=== PATIENT | male | born 1955 | race Caucasian/White ===

== ENCOUNTER 2019-10-27 13:45 | Outpatient (REF) | payer BC, SELFPAY ==
[2019-10-27 19:41] LABS: HCT 46.3 % (40.0-50.0); HGB 15.9 g/dL (13.5-17.5); Mean Corp. HGB Concentration 34.3 g/dL (32.0-36.0); Mean Corpuscular Hemoglobin 29.9 pg (27.0-33.0); Mean Corpuscular Volume 87.2 fL (80-95); Mean Platelet Volume 10.4 fL (8.0-11.0); Platelet Count 259 x1000/uL (130-400); RBC 5.31 m/cumm (4.50-6.00); RBC Distribution Width 13.8 % (11.8-14.1); White Blood Cell Count 5.95 k/cumm (4.4-10.8)
[2019-10-27 19:49] LABS: ALT 54 U/L (16-63); AST 33 U/L (15-37); Albumin 4.3 g/dL (3.4-5.0); Alkaline Phosphatase 73 U/L (46-116); Anion Gap 9.9 mmol/L (3-11); BUN 20 mg/dL (7-18); Bilirubin, Total 1.1 mg/dL (0.2-1.0); CO2 27.1 mmol/L (21.0-32.0); Calcium 9.4 mg/dL (8.5-10.1); Calculated LDL 116 mg/dL (<100); Chloride 105 mmol/L (98-107); Cholesterol 181 mg/dL (<200); Glucose 94 mg/dL (74-106); HDL Cholesterol 47 mg/dL (40-60); Potassium 4.2 mmol/L (3.5-5.1); Sodium 142 mmol/L (136-145); Total Protein 7.5 g/dL (6.4-8.2); Triglyceride 92 mg/dL (<150)
== END 2019-10-27 14:05 ==
LOC: NCHCN 13:45
PROVIDERS: PCP Internal Medicine; Visit Provider Nurse Practitioner Family
DX: Z00.00 Encounter for general adult medical examination without abnormal findings (principal); K59.09 Other constipation; Z71.89 Other specified counseling
CPT/HCPCS: 80053; 80061; 85027

== ENCOUNTER 2021-10-15 18:46 | Outpatient (REF) | payer MEDICARE, SELFPAY ==
[2021-10-15 19:43] LABS: C-Reactive Protein 0.24 mg/dL (0.0-0.3)
[2021-10-16 16:58] LABS: Uric Acid 6.2 mg/dL (3.5-7.2)
== END 2021-10-15 18:47 | disposition home or self-care (01) ==
LOC: NCHCN 18:46
PROVIDERS: Visit Provider Family Medicine
DX: M46.92 Unspecified inflammatory spondylopathy, cervical region (principal); M25.50 Pain in unspecified joint; Z12.5 Encounter for screening for malignant neoplasm of prostate
CPT/HCPCS: 84153; 84550; 86140

== ENCOUNTER 2021-11-21 23:07 | Observation (INO) | payer MEDICARE, SELFPAY ==
[2021-11-21 23:13] VITALS: BP 138/85; PULSE 77; RESP 22; TEMP 36.4; O2SAT 99
[2021-11-21] MEDS: Normal Saline 1,000 ML 1000 ML IV (23:15)
--- NOTE | 2021-11-21 23:15 | DI.CT_ITS ---
Exam(s) CT ABDOMEN PELVIS WO EXAM: CT ABDOMEN PELVIS WO CLINICAL HISTORY: n/v abdominal pain. TECHNIQUE: Imaging Protocol: Axial computed tomography images with coronal and sagittal reformatted images were created and reviewed. Oral: no COMPARISON: No exams were available for comparison FINDINGS: ABDOMEN: Lung Bases: Normal where visualized. Liver: Normal density. No measurable mass. Gallbladder and biliary tract: No radiodense calculus or dilation. Pancreas: Normal density, no abnormal calcifications or inflammatory process. Spleen: Normal. Kidneys: Normal size, contour and axis. No radiodense stones or obstructive uropathy. No masses seen. Adrenal glands: No masses seen. Lymph nodes: Within normal limits. Abdominal Aorta: Abdominal portion non-dilated. PELVIS: Bladder: Symmetric distention, no gross wall thickening. Bowel: Dilatation of small bowel with transition point in right lower quadrant consistent with obstru ction. Fecalization of distal small bowel. Moderate quantity of stool in the colon. No colonic inf lammation. Peritoneal cavity: No ascites, collection or mesenteric inflammatory response. Soft tissues: Small b ilateral fatty containing inguinal hernias. Small amount of fluid on the right. Reproductive organs: Within normal limits. Bones: Degenerative disc changes in the lumbar spine. IMPRESSION: Findings consistent with small-bowel obstruction with transition point in the right lower quadrant. RADIATION DOSE DELIVERED: 881.19mGy.cm Total DLP DATA REPOSITORY: All CT scans at this facility are submitted to the National Radiology Data Registry (NRDR) Dose Index Registry (DIR) with the [employer] ([employer]). RADIATION OPTIMIZATION: All CT scans at this facility use at least one of these dose optimization te chniques: automated exposure control; mA and/or kV adjustment per patient size (includes targeted exa ms where dose is matched to clinical indication); or iterative reconstruction.
[2021-11-21] MEDS: Ondansetron 4 MG/2 ML VIAL (23:22)
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
[2021-11-21 23:28] LABS: Abs Immature Grans 0.03 10^3/uL (0.0-0.06); Absolute Basophil Count 0.05 10^3/uL (0.0-0.2); Absolute Eosinophil Count 0.31 10^3/uL (0.0-0.7); Absolute Lymphocyte Count 1.98 10^3/uL (1.2-3.4); Absolute Monocyte Count 0.78 10^3/uL (0.1-0.8); Absolute Neutrophil Count 6.04 10^3/uL (1.2-6.7); Basophils % 0.5; Eosinophils % 3.4; HCT 46.5 % (40.0-50.0); HGB 15.6 g/dL (13.5-17.5); Immature Grans % 0.3; Lymphocytes % 21.5; MCH 29.3 pg (27.0-33.0); MCHC 33.5 % (32.0-36.0); MCV 87 fL (80-95); MPV 9.4 fL (8.0-11.0); Monocytes % 8.5; Neutrophils % 65.8; Platelet Count 235 10^3/uL (130-400); RBC 5.33 10^6/uL (4.36-5.78); RDW 13.2 % (11.8-14.1); WBC 9.19 10^3/uL (4.4-10.8)
[2021-11-21] MEDS: LORazepam 2 MG/ML VIAL 1 MG IVP (23:35)
[2021-11-21 23:42] LABS: ALT 37 U/L (16-63); AST 23 U/L (15-37); Albumin 3.9 g/dL (3.4-5.0); Alkaline Phosphatase 98 U/L (46-116); BUN 21 mg/dL (7-18); Bilirubin, Direct 0.2 mg/dL (0.0-0.2); Bilirubin, Total 1.1 mg/dL (0.2-1.0); CREATININE 1.1 mg/dL (0.70-1.30); Calcium 9.5 mg/dL (8.5-10.1); Chloride 101 mmol/L (98-107); Glucose 164 mg/dL (74-106); Lipase 99 U/L (73-393); Magnesium 1.9 mg/dL (1.8-2.4); Potassium 4.2 mmol/L (3.5-5.1); Sodium 141 mmol/L (136-145); Total Protein 7.5 g/dL (6.4-8.2)
[2021-11-21 23:43] LABS: ETHANOL BLOOD < 3.0 mg/dL (<10)
[2021-11-22] MEDS: diphenhydrAMINE 50 MG/ML VIAL 25 MG IVP (00:21)
[2021-11-22] MEDS: Ketorolac 15 MG/ML VIAL IVP (00:22)
[2021-11-22] MEDS: LORazepam 2 MG/ML VIAL 1 MG IVP (00:22)
[2021-11-22] MEDS: Ondansetron 4 MG/2 ML VIAL IVP (00:23)
--- NOTE | 2021-11-22 01:07 | DI.VRAD_ITS ---
PROCEDURE INFORMATION: Exam: CT Abdomen And Pelvis Without Contrast Exam date and time: 11/21/2021 11:49 PM Age: 65 years old Clinical indication: Nausea and vomiting; Abdominal pain; Generalized; Additional info: N/v acute abd pain TECHNIQUE: Imaging protocol: Computed tomography of the abdomen and pelvis without contrast. Radiation optimization: All CT scans at this facility use at least one of these dose optimization techniques: automated exposure control; mA and/or kV adjustment per patient size (includes targeted exams where dose is matched to clinical indication); or iterative reconstruction. COMPARISON: No relevant prior studies available. FINDINGS: Lungs: The visualized portions of the lung bases are normal. Liver: Normal. No mass. Gallbladder and bile ducts: Normal. No calcified stones. No ductal dilation. Pancreas: Normal. No ductal dilation. Spleen: Normal. No splenomegaly. Adrenal glands: Normal. No mass. Kidneys and ureters: Normal. No hydronephrosis. Stomach and bowel: Multiple borderline to mildly dilated fluid-filled loops of small bowel within the right upper and mid abdomen measuring up to 3.2 cm in diameter, suspicious for early mechanical obstruction. A transition point is suspected within the right lower quadrant, where there is fecalization within a loop of small bowel (series 2, image 62 and series 3, image 24). Appendix: No evidence of appendicitis. Intraperitoneal space: Unremarkable. No free air. No significant fluid collection. Vasculature: Unremarkable. No abdominal aortic aneurysm. Lymph nodes: Unremarkable. No enlarged lymph nodes. Urinary bladder: Unremarkable as visualized. Reproductive: Unremarkable as visualized. Bones/joints: Unremarkable. No acute fracture. Soft tissues: Bilateral small inguinal hernias, right greater than left, containing fat and a small amount of fluid on the right. IMPRESSION: 1. Multiple borderline to mildly dilated fluid-filled loops of small bowel within the right upper and mid abdomen measuring up to 3.2 cm in diameter, suspicious for early mechanical obstruction. A transition point is suspected within the right lower quadrant, where there is fecalization within a loop of small bowel (series 2, image 62 and series 3, image 24). 2. Bilateral small inguinal hernias, right greater than left, containing fat and a small amount of fluid on the right. Dictated and Authenticated by: Jhonatan Melgoza MD. Ordering:AAMIR Blunt MD
[2021-11-22 01:35] LABS: Source Nasal/Nares
[2021-11-22 02:20] VITALS: BP 136/70; PULSE 77; RESP 17; TEMP 36.4; O2SAT 97
[2021-11-22 02:24] LABS: COVID-19 PCR Negative (Negative)
[2021-11-22] MEDS: Normal Saline Flush 10 ML SYR IVP (02:34)
[2021-11-22] MEDS: Normal Saline 1,000 ML 150 ML IV ×2 (02:34→09:23)
[2021-11-22 08:28] VITALS: BP 122/76; PULSE 59; RESP 18; TEMP 36.3; O2SAT 97
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
[2021-11-22 11:34] VITALS: BP 128/74; PULSE 58; RESP 17; TEMP 36.6; O2SAT 98
== END 2021-11-22 12:11 | disposition home or self-care (01) ==
LOC: ER 11-22 01:32 → MS 11-22 05:01
PROVIDERS: Admitting Provider Surgery; Emergency Provider Emergency Medicine; Visit Provider Surgery
DX: K56.600 Partial intestinal obstruction, unspecified as to cause (principal); R11.2 Nausea with vomiting, unspecified; Z87.820 Personal history of traumatic brain injury; R41.89 Other symptoms and signs involving cognitive functions and awareness; R41.9 Unspecified symptoms and signs involving cognitive functions and awareness; F41.9 Anxiety disorder, unspecified; Z20.822 Contact with and (suspected) exposure to COVID-19; K42.9 Umbilical hernia without obstruction or gangrene; K40.90 Unilateral inguinal hernia, without obstruction or gangrene, not specified as recurrent
CPT/HCPCS: 36415; 80053; 83690; 87635; 96360; 96361; 96374; 96375; 96376; 99235; 99285; 74176; 80320; 81003; 82248; 83735; 85025; G0378; J1200; J1885; J2060; J2405; J3490

== ENCOUNTER 2022-06-02 13:35 | Outpatient (REF) | payer MEDICARE, SELFPAY ==
[2022-06-02 17:58] LABS: Abs Immature Grans 0.03 10^3/uL (0.0-0.06); Absolute Basophil Count 0.06 10^3/uL (0.0-0.2); Absolute Eosinophil Count 0.19 10^3/uL (0.0-0.7); Absolute Lymphocyte Count 2.07 10^3/uL (1.2-3.4); Absolute Monocyte Count 0.48 10^3/uL (0.1-0.8); Basophils % 0.8; Eosinophils % 2.6; HCT 46.2 % (40.0-50.0); Immature Grans % 0.4; Lymphocytes % 28.2; MCH 29.7 pg (27.0-33.0); MCHC 34.6 % (32.0-36.0); MCV 86 fL (80-95); MPV 10.4 fL (8.0-11.0); Monocytes % 6.5; Neutrophils % 61.5; Platelet Count 249 10^3/uL (130-400); RBC 5.39 10^6/uL (4.36-5.78); RDW 13.1 % (11.8-14.1); RDW-SD 40.6 fL; WBC 7.33 10^3/uL (4.4-10.8)
[2022-06-02 19:01] LABS: ALT 32 U/L (16-63); AST 27 U/L (15-37); Albumin 4.3 g/dL (3.4-5.0); Alkaline Phosphatase 75 U/L (46-116); Anion Gap 10.8 mmol/L (3-11); BUN 23 mg/dL (7-18); CO2 24.2 mmol/L (21.0-32.0); CREATININE 0.9 mg/dL (0.70-1.30); Chloride 104 mmol/L (98-107); Estimated GFR 93.61 (mL/min/1.73m2); Glucose 99 mg/dL (74-106); Potassium 4.1 mmol/L (3.5-5.1); Sodium 139 mmol/L (136-145); TSH (W/Ref FT4) 2.79 uIU/mL (0.36-3.74); Total Protein 7.5 g/dL (6.4-8.2); Vitamin B12 665 pg/mL (193-986)
[2022-06-03 19:01] LABS: Estimated Average Glucose 111 mg/dL; Hemoglobin A1C 5.5 % (<5.7)
[2022-06-04 11:18] LABS: Lyme Ab w Rflx to Lyme Confirm Negative (Negative)
== END 2022-06-02 13:36 | disposition home or self-care (01) ==
LOC: LBN 13:35
PROVIDERS: Visit Provider Family Medicine
DX: M25.59 Pain in other specified joint (principal)
CPT/HCPCS: 80053; 82607; 83036; 84443; 85025; 86618

== ENCOUNTER 2023-02-09 13:29 | Outpatient (REF) | payer MEDICARE, SELFPAY ==
[2023-02-09 17:41] LABS: Calculated LDL 109 mg/dL (<100); Cholesterol 180 mg/dL (<200); HDL Cholesterol 57 mg/dL (40-60); Magnesium 1.9 mg/dL (1.8-2.4); TSH (W/Ref FT4) 2.29 uIU/mL (0.36-3.74); Triglyceride 70 mg/dL (<150); Vitamin B12 699 pg/mL (193-986)
== END 2023-02-09 13:30 | disposition home or self-care (01) ==
LOC: NCHCN 13:29
PROVIDERS: PCP Nurse Practitioner Family; Visit Provider Nurse Practitioner Family
DX: G62.9 Polyneuropathy, unspecified (principal); Z00.00 Encounter for general adult medical examination without abnormal findings
CPT/HCPCS: 80061; 82306; 82607; 83735; 84443

== ENCOUNTER 2023-07-24 14:56 | Outpatient (REF) | payer MEDICARE, SELFPAY ==
[2023-07-24 16:00] LABS: ALT 28 U/L (16-63); AST 25 U/L (15-37); Albumin 4.1 g/dL (3.4-5.0); Alkaline Phosphatase 74 U/L (46-116); Anion Gap 9.7 mmol/L (3-11); BUN 14 mg/dL (7-18); Bilirubin, Total 1.4 mg/dL (0.2-1.0); CO2 26.3 mmol/L (21.0-32.0); Calcium 9.5 mg/dL (8.5-10.1); Chloride 105 mmol/L (98-107); Estimated GFR 81.98 (mL/min/1.73m2); Glucose 112 mg/dL (74-106); Potassium 3.8 mmol/L (3.5-5.1); Sodium 141 mmol/L (136-145); Total Protein 7.4 g/dL (6.4-8.2)
== END 2023-07-24 14:57 | disposition home or self-care (01) ==
LOC: NCHCN 14:56
PROVIDERS: PCP Nurse Practitioner Family; Referring Provider Nurse Practitioner Family; Visit Provider Nurse Practitioner Family
DX: K59.09 Other constipation (principal)
CPT/HCPCS: 80053

== ENCOUNTER 2024-01-08 10:23 | Outpatient (REF) | payer MEDICARE, SELFPAY ==
--- OUTSIDE RECORDS SUMMARY | 2024-01-08 10:25 | XMS_ITS | Encounter Summary ---
Author Organization [facility] [place] [address] Care Team Providers Care Antique Collector Name Role Phone FerndanielleAmelia Montes Primary Care Provider [phone] Encounter Details Date Type Department Care Team (Late st Contact Info) Description 10/02/2023 Telephone [place] [address] Joya Ryan MD [facility] [place] [address] Social History Tobacco Use Types Packs/Day Years Used Date Smoking Tobacco: Never Assessed Sex and Gender Information Value Date Recorded Sex Assigned at Not on file Gender Identity Not on file Sexual Orientation Not on file documented as of this encounter Miscellaneous Notes * Telephone Encounter - Maria L Aguilera - 10/16/2023 1:16 PM EDT Please follow scheduling instructions outside of the [facility] Schedule first available appointment with: Dr. Ryan Visit Type: TH FOLLOW UP Appointment Notes: f/up results * Telephone Encounter - Aurelia Ryan RN - 10/06/2023 4:43 PM EDT Unable to connect with patient. Left message to call clinic [phone]. * Telephone Encounter - Aurelia Ryan RN - 10/02/2023 8:21 AM EDT Unable to connect with patient. Left message to call clinic [phone]. ----- Message from Joya Ryan MD sent at 09/27/2023 11:11 PM EDT ----- Hi August - This gentleman has a larger than expected central spinal canal -you ask scheduling to set up can you let him know that this can be a normal variant or can cause symptoms that overlap with neuropathy.We can talk more by TH if he would like - if so, can you ask scheduling to set up a TH visit in an urgent or private slot for me? V documented in this encounter Plan of Treatment Not on file documented as of this encounter Visit Diagnoses Not on filedocumented in this encounter Care Teams Antique Collector Relationship Specialty Start Date End Date Amelia Murray [address] [place] [address] PCP - General Family Medicine 06/17/22 documented as of this encounter
--- OUTSIDE RECORDS SUMMARY | 2024-01-08 10:25 | XMS_ITS | Encounter Summary ---
Author Organization [facility] [place] [address] Care Team Providers Care Cath Lab Technologist Name Role Phone Amelia Murray Primary Care Provider [phone] Encounter Details Date Type Department Care Team (Latest Contact Info) Description 09/04/2023 Travel Social History Tobacco Use Types Packs/Day Years Used Date Smoking Tobacco: Never Assessed Sex and Gender Information Value Date Recorded Sex Assigned at Not on file Gender Identity Not on file Sexual Orientation Not on file documented as of this encounter Plan of Treatment Not on file documented as of this encounter Visit Diagnoses Not on filedocumented in this encounter Care Teams Cath Lab Technologist Relationship Specialty Start Date End Date Amelia Murray [address] [place] [address] PCP - General Family Medicine 06/17/22 documented as of this encounter
--- OUTSIDE RECORDS SUMMARY | 2024-01-08 10:25 | XMS_ITS | Encounter Summary ---
Author Organization [facility] [place] [address] Care Team Providers Care Night Order Selector Name Role Phone Amelia Murray Primary Care Provider [phone] Reason for Visit * Reason Onset Date Comments Appointment 09/09/2023 Encounter Details Date Type Department Care Team (Late st Contact Info) Description 09/09/2023 [place] [address] Joya Ryan MD [facility] [address] [place] [address] Appointment Social History Tobacco Use Types Packs/Day Years Used Date Smoking Tobacco: Never Assessed Sex and Gender Information Value Date Recorded Sex Assigned at Not on file Gender Identity Not on file Sexual Orientation Not on file documented as of this encounter Miscellaneous Notes * Telephone Encounter - Martina Torrez - 09/09/2023 9:19 AM EDT Scheduling Instructions Provider: Dr Ryan Visit Type (paste LUIS Instructions or manually enter): Return for Telehealth, after thoracic MRI If EMG Visit needed list diagnosis for the EMG to be used in [facility]: Appt Note: schedule mri Additional Info Needed: Mri questions need to be asked. documented in this encounter Plan of Treatment Not on file documented as of this encounter Visit Diagnoses Not on filedocumented in this encounter Care Teams Night Order Selector Relationship Specialty Start Date End Date Amelia Murray [address] [place] [address] PCP - General Family Medicine 06/17/22 documented as of this encounter
--- OUTSIDE RECORDS SUMMARY | 2024-01-08 10:25 | XMS_ITS | Clinical Summary ---
[facility] [place] [address] Care Team Providers Care Multimedia Programmer Name Role Phone Amelia Murray Primary Care Provider [phone] Allergies No known active allergies Medications No known medications Social History Tobacco Use Types Packs/Day Years Used Date Smoking Tobacco: Never Assessed Sex and Gender Information Value Date Recorded Sex Assigned at Not on file Gender Identity Not on file Sexual Orientation Not on file Last Filed Vital Signs Vital Sign Reading Time Taken Comments Blood Pressure 147/89 06/29/2023 8:48 AM EST Pulse 101 06/29/2023 8:48 AM EST Temperature - - Respiratory Rate - - Oxygen Saturation - - Inhaled Oxygen Concentration - - Weight 86.6 kg (191 lb) 06/29/2023 8:48 AM EST p t reported Height 177.8 cm (5' 10) 06/29/2023 8:48 AM EST pt reported Body Mass Index 27.41 06/29/2023 8:48 AM EST Plan of Treatment Health Maintenance Due Date Last Done Comments CT Colonography 1954 Colonoscopy 1954 Colorectal Cancer Screening 1954 FIT DNA 1954 FIT 1954 Sigmoidoscopy (10 year) with FIT yearly 1954 Sigmoidoscopy 1954 Hepatitis C Screening 1972 Lipid Screening 1972 Tdap adult 1973 Tetanus vaccine 1973 Diabetes Screening (HgbA1C or Glucose) 1994 Zoster vaccine (1 of 2) 2004 Advance Directive 2009 Pneumoccocal Vaccine: 65+ (1 of 1 - PCV) 12/01/2019 Covid-19 Vaccine ( - 2022-24 season) 2023 Influenza (Flu) vaccine (1 o f 1 - Influenza standard series) 01/17/2024 Care Teams Multimedia Programmer Relationship Specialty Start Date End Date Amelia Murray [address] [place] [address] PCP - General Family Medicine 06/17/22
--- OUTSIDE RECORDS SUMMARY | 2024-01-08 10:25 | XMS_ITS | Encounter Summary ---
Author Organization [facility] [place] [address] Care Team Providers Care Basketball Coach Name Role Phone Amelia Murray Primary Care Provider [phone] Encounter Details Date Type Department Care Team (Late st Contact Info) Description 08/27/2023 External [place] [address] Joya Ryan MD [facility] [place] [address] Social History Tobacco Use Types Packs/Day Years Used Date Smoking Tobacco: Never Assessed Sex and Gender Information Value Date Recorded Sex Assigned at Not on file Gender Identity Not on file Sexual Orientation Not on file documented as of this encounter Plan of Treatment Not on file documented as of this encounter Procedures Procedure Name Priority Date/Time Associated Diagnosis Comments EMG WITH F-WAVE Routine 08/26/2023 11:51 AM EDT documented in this encounter Results * EMG WITH F-WAVE (08/26/2023 11:51 AM EDT) Joya Ryan MD NEUROLOGY ORDERABLE S documented in this encounter Visit Diagnoses Not on filedocumented in this encounter Care Teams Basketball Coach Relationship Specialty Start Date End Date Amelia Murray [address] [place] [id number] PCP - General Family Medicine 06/17/22 documented as of this encounter
--- OUTSIDE RECORDS SUMMARY | 2024-01-08 10:25 | XMS_ITS | Encounter Summary ---
Author Organization [facility] [place] [address] Care Team Providers Care Doll Wigs Hackler Name Role Phone Jose AlfredoAmelia Montes Primary Care Provider [phone] Reason for Referral * Diagnostic Test (Routine) - Closed Specialty Diagnoses / Procedures Referred By Contac t Referred To Contact Radiology Diagnoses Weakness of lower extremity, unspecified laterality Numbness and tingling of both upper extremities Procedures MRI Cervical Spine wo Contrast (Generic) Joya Ryan MD [facility] [place] [address] [place] [address] Referral ID Status Reason Start Date Expiration Date V isits Requested Visits Authorized [id number] Closed Specialty Service Requested 08/26/2023 02/24/2025 1 1 * Diagnostic Test (Routine) - Closed Specialty Diagnoses / Procedures Referred By Contac t Referred To Contact Radiology Diagnoses Weakness of lower extremity, unspecified laterality Procedures MRI Lumbar Spine wo Contrast (Generic) Joya Ryan MD [facility] [place] [address] [place] [address] Referral ID Status Reason Start Date Expiration Date V isits Requested Visits Authorized [id number] Closed Specialty Service Requested 08/26/2023 02/24/2025 1 1 Reason for Visit * Diagnostic Test (Routine) - Closed Specialty Diagnoses / Procedures Referred By Contac t Referred To Contact Radiology Diagnoses Weakness of lower extremity, unspecified laterality Numbness and tingling of both upper extremities Procedures MRI Cervical Spine wo Contrast (Generic) Joya Ryan MD [facility] [place] [place] [address] [facility] [place] [address] Referral ID Status Reason Start Date Expiration Date V isits Requested Visits Authorized [id number] Closed Specialty Service Requested 08/26/2023 02/24/2025 1 1 Encounter Details Date Type Department Care Team (Latest Contact Info) Description 09/04/2023 6:23 PM EDT - 09/04/2023 11:59 PM EDT Hospital [place] [address] Joya Ryan MD [facility] [place] [address] Weakness of lower extremity, unspecified laterality; Numbness and tingling of both upper extremities Discharge Disposition: Home Social History Tobacco Use Types Packs/Day Years Used Date Smoking Tobacco: Never Assessed Sex and Gender Information Value Date Recorded Sex Assigned at Not on file Gender Identity Not on file Sexual Orientation Not on file documented as of this encounter Medications at Time of Discharge Medication Sig Dispensed Refills Start Date End Date meclizine (Antivert) 25 mg tablet Take 25 mg by mouth as needed for Dizziness. 06/25/2023 09/09/2023 documented as of this encounter Progress Notes * Joya Ryan MD - 09/04/2023 11:59 PM EDT Hi August - Can you let Mr. Renteria know that I was looking for evidence of cervical stenosis on MRI - while there is accumulation of degenerative arthritis in the spine - which could be contributing to some of his UE symptoms - , there is not evidence that the spinal cord is in jeopardy. Thanks August! documented in this encounter Plan of Treatment Not on file documented as of this encounter Procedures Procedure Name Priority Date/Time Associated Diagnosis Comments MRI LUMBAR SPINE WITHOUT CONTRAST Routine 09/04/2023 7:37 PM EDT Weakness of lower extremity, unspecified laterality MRI CERVICAL SPINE WO CONTRAST Routine 09/04/2023 7:37 PM EDT Weakness of lower extremity, unspecified laterality Numbness and tingling of both upper extremities documented in this encounter Results * MRI Cervical Spine wo Contrast (Generic) (09/04/2023 7:37 PM EDT) [employer] WORKSTATION ID [id number] [facility] Anatomical Region Laterality Modality C-spine Magnetic Resonan ce Impressions 09/06/2023 5:01 PM EDT 1. ??Mild flattening of the ventral spinal cord at C5-6 and C6-7 without cord compression. Normal spinal cord signal. 2. ??Multifocal foraminal stenosis up to severe on the left at C3-4 and bilaterally at C5-6 and C6-7. 3. ??Additional degenerative changes as discussed. Thank you for letting us participate in the care of this patient. ??If you are a health care provider and have any questions regarding this report, please contact the number below. ??For patients who have questions please contact the health care management specialist that requested your imaging first. ? Narrative 09/06/2023 5:01 PM EDT EXAMINATION: MRI CERVICAL SPINE WO CONTRAST (GENERIC) CLINICAL HISTORY: Myelopathy, chronic, cervical spine; LE weakness + UE dysesthesias cervical myelopathy due to stenosis R29.898, Other symptoms and signs involving the musculoskeletal system - R20.0, Anesthesia of skin - R20.2, Paresthesia of skin TECHNIQUE: MRI of the cervical spine performed without intravenous contrast administration. COMPARISON: None FINDINGS: Severe degenerative disc changes at C5-6 and C6-7 with pronounced loss of disc height and is T2 bright disc signal with prominent reactive edematous endplate changes and anterior osteophyte formation. There is mild loss of height of the C5 and C6 vertebral bodies on a degenerative basis. The remaining cervical vertebrae are maintained in height. The cervical spinal cord is normal in signal. The visualized portions of the brain are within normal limits. C2-3: No significant spinal canal or foraminal stenosis. Fused right facet arthropathy. Moderate left facet arthropathy. C3-4: No significant spinal canal stenosis. Left uncovertebral arthropathy and severe left facet arthropathy with severe left neural foraminal stenosis. No significant right neural foraminal stenosis. C4-5: Disc osteophyte complex that mildly narrows the ventral CSF space without contacting or distorting the spinal cord. Both facet joints appear to be fused. Left uncovertebral arthropathy. Mild bilateral neural foraminal stenosis. C5-6: Disc osteophyte complex that narrows the ventral CSF space and mildly flattens the ventral spinal cord without cord compression. Dorsal ligamentous buckling. Moderate bilateral facet arthropathy. Severe bilateral neural foraminal stenosis. C6-7: Eccentric left disc osteophyte complex that narrows the ventral CSF space and mildly flattens the ventral spinal cord more so on the left. Severe bilateral facet arthropathy and bilateral uncovertebral arthropathy with severe bilateral neural foraminal stenosis. C7-T1: No significant spinal canal or foraminal stenosis. Procedure Note Richi Scherer MD - 09/06/2023 EXAMINATION: MRI CERVICAL SPINE WO CONTRAST (GENERIC) CLINICAL HISTORY: Myelopathy, chronic, cervical spine; LE weakness + UE dysesthesias cervical myelopathy due to stenosis R29.898, Other symptoms and signs involving the musculoskeletal system -R20.0, Anesthesia of skin - R20.2, Paresthesia of skin TECHNIQUE: MRI of the cervical spine performed without intravenous contrastadministration. COMPARISON: None FINDINGS: Severe degenerative disc changes at C5-6 and C6-7 with pronounced loss ofdisc height and is T2 bright disc signal with prominent reactive edematousendplate changes and anterior osteophyte formation. There is mild loss of height ofthe C5 and C6 vertebral bodies on a degenerative basis. The remainingcervical vertebrae are maintained in height. The cervical spinal cord is normalin signal. The visualized portions of the brain are within normal limits. C2-3: No significant spinal canal or foraminal stenosis. Fused rightfacet arthropathy. Moderate left facet arthropathy. C3-4: No significant spinal canal stenosis. Left uncovertebral arthropathyand severe left facet arthropathy with severe left neural foraminal stenosis.No significant right neural foraminal stenosis. C4-5: Disc osteophyte complex that mildly narrows the ventral CSF spacewithout contacting or distorting the spinal cord. Both facet joints appear to befused. Left uncovertebral arthropathy. Mild bilateral neural foraminalstenosis. C5-6: Disc osteophyte complex that narrows the ventral CSF space andmildly flattens the ventral spinal cord without cord compression. Dorsalligamentous buckling. Moderate bilateral facet arthropathy. Severe bilateral neural foraminal stenosis. C6-7: Eccentric left disc osteophyte complex that narrows the ventral CSFspace and mildly flattens the ventral spinal cord more so on the left. Severe bilateral facet arthropathy and bilateral uncovertebral arthropathy withsevere bilateral neural foraminal stenosis. C7-T1: No significant spinal canal or foraminal stenosis. IMPRESSION 1. Mild flattening of the ventral spinal cord at C5-6 and C6-7 withoutcord compression. Normal spinal cord signal. 2. Multifocal foraminal stenosis up to severe on the left at C3-4 and bilaterally at C5-6 and C6-7. 3. Additional degenerative changes as discussed. Thank you for letting us participate in the care of this patient. If youare a health care provider and have any questions regarding this report,please contact the number below. For patients who have questions please contactthe health care management specialist that requested your imaging first. Joya Ryan MD IMG MRI ORDERABLES * MRI Lumbar Spine wo Contrast (Generic) (09/04/2023 7:37 PM EDT) [employer] WORKSTATION ID [id number] RAD Anatomical Region Laterality Modality L-spine Magnetic Resonan ce Impressions 09/06/2023 6:37 PM EDT Extensive degenerative disc disease and facet arthropathy of the lumbar spine as detailed above. Prominent central spinal canal. 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 Dedicated imaging of the thoracic spine may be warranted. Comment: The following findings are so common in people without low back pain that while we report their presence, they must be interpreted with caution and in context of the clinical situation (Reference- Jarvik Et Al, Spine 2001). Findings: (Prevalence in patients without low back pain), disc degeneration (decreased T2 signal, height loss, bulge) (91%), disc T2-signal loss (83%), disc height loss (56%), disc bulge (64%), disc protrusion (32%), annular fissure (38%). Thank you for letting us participate in the care of this patient. ??If you are a health care provider and have any questions regarding this report, please contact the number below. ??For patients who have questions please contact the health care management specialist that requested your imaging first. ? Electronically signed by: Kamlesh Brunson MD, [facility] ([phone]), at 09/06/2023 6:37 PM Narrative 09/06/2023 6:37 PM EDT EXAMINATION: MRI LUMBAR SPINE WO CONTRAST (GENERIC) CLINICAL HISTORY: Low back pain, progressive neurologic deficit; LE weakness R29.898, Other symptoms and signs involving the musculoskeletal system TECHNIQUE: MRI of the lumbar spine performed without intravenous contrast administration. COMPARISON: None FINDINGS: There is mild dextroconvex scoliosis of the lumbar spine. Vertebral heights are normally maintained. There is extensive mixed fatty and edematous discogenic degenerative change in the endplates about the T12-L1, L2-3, L3-4, L4-5 disc spaces. There is loss of disc space height at L2-3, L3-4, and L4-5. The conus medullaris is of normal contour terminating at the level of L1. There appears to be mildly prominent central spinal canal and the most superiorly visualized portions of the lower thoracic spinal cord. At L1-2 there is an asymmetric disc bulge larger on the left. This produces mild left neural foramen narrowing. At L2-3 there is an asymmetric disc bulge larger on the left. This combines with mild bilateral facet arthropathy to produce relative narrowing the spinal canal, moderate narrowing of the left subarticular recess, and mild right and moderate left neural foramen narrowing. At L3-4 there is an asymmetric disc bulge larger on the left. This combines with mild right and moderate left hypertrophic facet arthropathy to produce relative narrowing of the spinal canal with moderate left subarticular recess narrowing and moderate bilateral neural foramen narrowing. At L4-5 there is a large circumferential disc bulge. There is moderate bilateral hypertrophic facet arthropathy. These abnormalities combine to produce mild bilateral subarticular recess narrowing and moderate bilateral neural foramen narrowing. At L5-S1 there is moderate bilateral hypertrophic facet arthropathy producing mild bilateral neural foramen narrowing. Procedure Note Kamlesh Brunson MD - 09/06/2023 EXAMINATION: MRI LUMBAR SPINE WO CONTRAST (GENERIC) CLINICAL HISTORY: Low back pain, progressive neurologic deficit; LEweakness R29.898, Other symptoms and signs involving the musculoskeletal system TECHNIQUE: MRI of the lumbar spine performed without intravenous contrastadministration. COMPARISON: None FINDINGS: There is mild dextroconvex scoliosis of the lumbar spine. Vertebralheights are normally maintained. There is extensive mixed fatty and edematousdiscogenic degenerative change in the endplates about the T12-L1, L2-3, L3-4, L4-5disc spaces. There is loss of disc space height at L2-3, L3-4, and L4-5. Theconus medullaris is of normal contour terminating at the level of L1. Thereappears to be mildly prominent central spinal canal and the most superiorlyvisualized portions of the lower thoracic spinal cord. At L1-2 there is an asymmetric disc bulge larger on the left. Thisproduces mild left neural foramen narrowing. At L2-3 there is an asymmetric disc bulge larger on the left. Thiscombines with mild bilateral facet arthropathy to produce relative narrowing the spinalcanal, moderate narrowing of the left subarticular recess, and mild right andmoderate left neural foramen narrowing. At L3-4 there is an asymmetric disc bulge larger on the left. Thiscombines with mild right and moderate left hypertrophic facet arthropathy to producerelative narrowing of the spinal canal with moderate left subarticular recessnarrowing and moderate bilateral neural foramen narrowing. At L4-5 there is a large circumferential disc bulge. There is moderatebilateral hypertrophic facet arthropathy. These abnormalities combine to producemild bilateral subarticular recess narrowing and moderate bilateral neuralforamen narrowing. At L5-S1 there is moderate bilateral hypertrophic facet arthropathyproducing mild bilateral neural foramen narrowing. IMPRESSION Extensive degenerative disc disease and facet arthropathy of the lumbarspine as detailed above. Prominent central spinal canal. This is partially visualized, and ispossible that it represents a component of a more severe hydrosyringomyelia ofthe thoracic spinal cord. Dedicated imaging of the thoracic spine may bewarranted. Comment: The following findings are so common in people without low backpain that while we report their presence, they must be interpreted with cautionand in context of the clinical situation (Reference- Perlak Et Al, [id number]). Findings: (Prevalence in patients without low back pain), discdegeneration (decreased T2 signal, height loss, bulge) (91%), disc T2-signal loss(83%), disc height loss (56%), disc bulge (64%), disc protrusion (32%), annularfissure (38%). Thank you for letting us participate in the care of this patient. If youare a health care provider and have any questions regarding this report,please contact the number below. For patients who have questions please contactthe health care management specialist that requested your imaging first. Electronically signed by: Kamlesh Brunson MD, [facility]([phone]), at 09/06/2023 6:37 PM Joya Ryan MD IMG MRI ORDERABLES documented in this encounter Visit Diagnoses Diagnosis Weakness of lower extremity, unspecified laterality Numbness and tingling of both upper extremities documented in this encounter Care Teams Doll Wigs Hackler Relationship Specialty Start Date End Date Amelia Murray [address] [place] [address] PCP - General Family Medicine 06/17/22 documented as of this encounter
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
--- OUTSIDE RECORDS SUMMARY | 2024-01-08 10:25 | XMS_ITS | Encounter Summary ---
Author Organization [facility] [place] [address] Care Team Providers Care Concrete Pile Driver Operator Name Role Phone Amelia Murray Primary Care Provider [phone] Reason for Visit * Reason Onset Date Comments Reminder Appointment 09/02/2023 Encounter Details Date Type Department Care Team (Late st Contact Info) Description 09/02/2023 Telephone [place] [phone] Joya Ryan MD [facility] [place] [address] Reminder Appointment Social History Tobacco Use Types Packs/Day Years Used Date Smoking Tobacco: Never Assessed Sex and Gender Information Value Date Recorded Sex Assigned at Not on file Gender Identity Not on file Sexual Orientation Not on file documented as of this encounter Miscellaneous Notes * Telephone Encounter - Sarai Resendiz CMA - 09/02/2023 9:03 AM EDT Spoke with patient and confirmed all medications and allergies including reconciliation of outside medications. documented in this encounter Plan of Treatment Not on file documented as of this encounter Visit Diagnoses Not on filedocumented in this encounter Care Teams Concrete Pile Driver Operator Relationship Specialty Start Date End Date Amelia Murray [address] [place] [id number] PCP - General Family Medicine 06/17/22 documented as of this encounter
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
--- OUTSIDE RECORDS SUMMARY | 2024-01-08 10:25 | XMS_ITS | Continuity of Care Document ---
Author Organization [facility] Address [address] [place] [address] Care Team Providers Care Arborist Name Role Phone ALEXANDRIA FRANCOIS Primary Care Physician Encounter [facility] NBR [id number] Date(s): 07/01/23 - 07/29/23 [facility] [address] [place], [place] [address] Encounter Diagnosis Dizziness and giddiness(Discharge Diagnosis) - 07/01/23 Difficulty in walking, not elsewhere classified(Discharge Diagnosis) - 07/01/23 Other low back pain(Discharge Diagnosis) - 07/01/23 Cervicalgia(Discharge Diagnosis) - 07/01/23 Cervicalgia(Final) - Discharge Disposition: Home Attending Physician: Fede Mcqueen PT, DPT Admitting Physician: TRENTON DENNIS MD Referring Physician: TRENTON DENNIS MD Assessment and Plan Future Appointments Future Scheduled Tests Radiology* CT Abdomen and Pelvis w/ Contrast 07/31/23 Functional Status 06/30/23 Lives In Multilevel home Lives With Spouse Patient's Responsibilities Rehab Caregiv er for pet, Community mobility, Groundskeeper Supervisor, facilities management executive, Health and wellness, Home management, Laundry, Leisure/Play/Hobbies, Manage Medications, Meal preparation, Passenger, Personal ADL, Shopping, Social participation, Volunteer, Yard work Prior ADL Status Independent Prior Mobility Status Independent Prior Instrumental ADL Level Independent Prior Cognitive-Communication Skills Ind ependent Vital Signs Most recent to oldest [Reference Range]: 1 Peripheral Pulse Rate [60-100 bpm] 62 bp m (07/17/23 8:30 AM) Blood Pressure [90-140/60-90 mmHg] 124/7 6mmHg (07/17/23 8:30 AM) Patient Care team information Care Team Personnel Name: ALEXANDRIA FRANCOIS Position: No Access Member Role: Primary Care Physician Address: Address: [address] [address]
--- OUTSIDE RECORDS SUMMARY | 2024-01-08 10:25 | XMS_ITS | Encounter Summary ---
Author Organization [facility] [place] [address] Care Team Providers Care Business Info Consultant Name Role Phone Amelia Murray Primary Care Provider [phone] Encounter Details Date Type Department Care Team (Latest Contact Info) Description 08/26/2023 Travel Social History Tobacco Use Types Packs/Day Years Used Date Smoking Tobacco: Never Assessed Sex and Gender Information Value Date Recorded Sex Assigned at Not on file Gender Identity Not on file Sexual Orientation Not on file documented as of this encounter Plan of Treatment Not on file documented as of this encounter Visit Diagnoses Not on filedocumented in this encounter Care Teams Business Info Consultant Relationship Specialty Start Date End Date Amelia Murray [address] [place] [address] PCP - General Family Medicine 06/17/22 documented as of this encounter
--- OUTSIDE RECORDS SUMMARY | 2024-01-08 10:25 | XMS_ITS | Encounter Summary ---
Author Organization [facility] Address [facility] [place] [address] Care Team Providers Care Nonfarm Animal Caretaker Name Role Phone Amelia Murray Primary Care Provider [phone] Reason for Referral * Diagnostic Test (Routine) - Closed Specialty Diagnoses / Procedures Referred By Contac t Referred To Contact Radiology Diagnoses Numbness and tingling of both upper extremities Procedures MRI Thoracic Spine wwo Contrast Joya Ryan MD [facility] [place] [address] [place] [address] Referral ID Status Reason Start Date Expiration Date V isits Requested Visits Authorized [id number] Closed Specialty Service Requested 09/08/2023 03/09/2025 1 1 Reason for Visit * Diagnostic Test (Routine) - Closed Specialty Diagnoses / Procedures Referred By Contac t Referred To Contact Radiology Diagnoses Numbness and tingling of both upper extremities Procedures MRI Thoracic Spine wwo Contrast Joya Ryan MD [facility] [place] [address] [place] [address] Referral ID Status Reason Start Date Expiration Date V isits Requested Visits Authorized [id number] Closed Specialty Service Requested 09/08/2023 03/09/2025 1 1 Encounter Details Date Type Department Care Team (Latest Contact Info) Description 09/17/2023 9:33 AM EDT - 09/17/2023 11:59 PM EDT [place] [address] Joya Ryan MD [facility] [place] [address] Numbness and tingling of both upper extremities [...] Name Priority Date/Time Associated Diagnosis Comments MRI THORACIC SPINE WITH/WO CONTRAST Routine 09/17/2023 11:01 AM EDT Numbness and tingling of both upper extremities documented in this encounter Results * MRI Thoracic Spine wwo Contrast (09/17/2023 11:01 AM EDT) Ecal WORKSTATION ID [id number] [facility] Anatomical Region Laterality Modality T-spine Magnetic Resonan [...] who have questions please contact the health progressive care nurse that requested your imaging first. ? Electronically signed by: Kamlesh Brunson MD, [facility] ([phone]), at 09/18/2023 9:01 AM Narrative 09/18/2023 9:01 [...] patients who have questions please contactthe health progressive care nurse that requested your imaging first. Electronically signed by: Kamlesh Brunson MD, [facility]([phone]), at 09/18/2023 9:01 AM Joya Ryan MD IMG MRI ORDERABLES documented in this encounter Visit Diagnoses Diagnosis Numbness and tingling of both upper extremities documented in this encounter Administered Medications Inactive Administered Medications - up to 3 most recent administrations Medication Order MAR Action Action Date Dose Rate Site gadoterate meglumine (Dotarem) (0.5 mMol/mL) injection solution 0-100 mL 0-100 mL, Intravenous, ONCE PRN, 1 dose, Starting on Benita 09/17/23 at 0956, Until Benita 09/17/23 at 0956, Per Protocol, Radiology Contrast, Routine Given 09/17/2023 9:56 AM EDT 19 mLs documented in this encounter Care Teams Nonfarm Animal Caretaker Relationship Specialty Start Date End Date Amelia Murray [address] [place] [address] PCP - General Family Medicine 06/17/22 documented as of this encounter
--- OUTSIDE RECORDS SUMMARY | 2024-01-08 10:25 | XMS_ITS | Encounter Summary ---
Author Organization [facility] Address [facility] [place] [address] Care Team Providers Care Irrigation Specialist Name Role Phone JonesvíctordanielleAmelia Montes Primary Care Provider [phone] Encounter Details Date Type Department Care Team (Late st Contact Info) Description 07/01/2023 [place] [id number] Joya Ryan MD [facility] [place] [address] Social History Tobacco Use Types Packs/Day Years Used Date Smoking Tobacco: Never Assessed Sex and Gender Information Value Date Recorded Sex Assigned at Not on file Gender Identity Not on file Sexual Orientation Not on file documented as of this encounter Miscellaneous Notes * Telephone Encounter - Aurelia Ryan RN - 07/09/2023 10:34 AM EST Returned call to Yumiko AVITIA. He stated I saw Ryan for dizziness and neck pain 06/30/23. His symptoms do not appear to be consistent with vertigo and his dizziness was tough to provoke. It was provoked mildly with valsalva maneuver, I wonder if it is a pressure finding. He did mention that he is having bowel bladder changes,constipation when he bears down that is when symptoms occur. Fede wanted Dr. Ryan to be aware of findings and report was faxed last week. Informed Fede that message will be forwarded to Dr. Ryan for review. * Telephone Encounter - Michelle Otero - 07/03/2023 11:31 AM EST Farhana from [facility] calling back wants to let the provider know that Fede is not in the office until Thursday . Fede will be back Thursday morning please call at ext. 1 * Telephone Encounter - Aurelia Ryan RN - 07/03/2023 11:22 AM EST Unable to connect with Fede. Left message to call clinic [phone]. * Telephone Encounter - Urmila Irizarry RN - 07/01/2023 12:01 PM EST Copied from [facility] #[id number]. Topic: Specialty Dept CRMs - Generic Call >> Jul 01, 2023 9:58 AM Charly Swanson wrote: Specialist: Joya Ryan MD Relationship (if other than patient-full name): Fede, PT - Sergei Naranjo Reason for Call: Fede from [place] calling to speak with Dr. Ryan in regards to findings from physical therapy evaluation. This agent paged per process. documented in this encounter Plan of Treatment Not on file documented as of this encounter Visit Diagnoses Not on filedocumented in this encounter Care Teams Irrigation Specialist Relationship Specialty Start Date End Date Amelia Murray [address] [place] [address] PCP - General Family Medicine 06/17/22 documented as of this encounter
--- OUTSIDE RECORDS SUMMARY | 2024-01-08 10:25 | XMS_ITS | Continuity of Care Document ---
Author Organization [facility] Address [address] [place] [address] Care Team Providers Care Manager Program Management Name Role Phone ALEXANDRIA FRANCOIS Primary Care Physician [phone] Encounter [facility] NBR [id number] Date(s): 07/31/23 - 07/31/[address] [address]- [place] Discharge Disposition: Home or Self Care Attending Physician: LORE MCKINLEY Admitting Physician: LORE MCKINLEY Referring Physician: LORE MCKINLEY Results Radiology Reports * Exam Date Time Procedure Performing Provider Status 07/31/23 9:[address] Abdomen and Pelvis w/ Contrast Charmaine Mallory; Mauricio (Verified) Notes: (CT Abdomen and Pelvis w/ Contrast) Reason For Exam: CONSTIPATION CT Abdomen and Pelvis w/ Contrast EXAM DESCRIPTION: CT Abdomen and Pelvis w/ Contrast 07/31/2023 INDICATION: CONSTIPATION TECHNIQUE: All CT scans at this facility use at least one of these dose optimization techniques: Automated exposure control; mA and/or kV adjustment per patient size (includes targeted exams where dose is matched to clinical indication); or iterative reconstruction. Technique: Axial CT images of the abdomen/pelvis with IV contrast administration 100 cc of Isovue-300 contrast was utilized COMPARISON: Outside facility CT abdomen/pelvis without contrast from 11/21/2021 FINDINGS: No focal hepatic lesion. Normal enhancement of the main hepatic veins and main portal vein Normal spleen size without focal mass. No calcified gallstones in the gallbladder. Adrenal glands and pancreas appear within normal limits No focal renal mass, hydronephrosis or perinephric fluid collection on either side. Normal caliber abdominal aorta with atherosclerotic calcifications. No retroperitoneal adenopathy in the abdomen or pelvis. No bowel dilatation to suggest obstruction or ileus. No free intraperitoneal air, ascites or inflammatory changes. Normal appendix. Small fat containing left inguinal hernia. The visualized lung bases are clear. No suspicious regional osseous lesions. Spondylotic changes in the visualized spinal axis IMPRESSION: No acute findings in the abdomen or pelvis Nonobstructive bowel pattern. No free air or inflammatory changes. Normal appendix Additional nonacute findings as detailed above. JOB #: [id number] Final Signed by: Venkat Russell MD Signed (Electronic Signature): 07/31/2023 9:15 am Patient Care team information Care Team Personnel Name: ALEXANDRIA FRANCOIS Position: No Access Member Role: Primary Care Physician Address: Address: [place] [address]- Care Team Related Persons Name: ZURDO GALINDO
--- OUTSIDE RECORDS SUMMARY | 2024-01-08 10:25 | XMS_ITS | Encounter Summary ---
Author Organization [facility] [place] [address] Care Team Providers Care Engagement Quality Consultant Name Role Phone Amelia Murray Primary Care Provider [phone] Encounter Details Date Type Department Care Team (Latest Contact Info) Description 09/17/2023 Travel Social History Tobacco Use Types Packs/Day Years Used Date Smoking Tobacco: Never Assessed Sex and Gender Information Value Date Recorded Sex Assigned at Not on file Gender Identity Not on file Sexual Orientation Not on file documented as of this encounter Plan of Treatment Not on file documented as of this encounter Visit Diagnoses Not on filedocumented in this encounter Care Teams Engagement Quality Consultant Relationship Specialty Start Date End Date Amelia Murray [address] [place] [address] PCP - General Family Medicine 06/17/22 documented as of this encounter
--- OUTSIDE RECORDS SUMMARY | 2024-01-08 10:26 | XMS_ITS | Encounter Summary ---
Author Organization [facility] Address [address] [place] [address] Care Team Providers Care Plater Hot Dip Name Role Phone Unknown, Provider Primary Care Provider [phone] Encounter Details Date Type Department Care Team (Late st Contact Info) Description 04/23/[address] [facility] Services - [facility] ([facility]) [address], [place] [address] Kamlesh Rob, [address] [facility] [address] [place] [address] Social History Tobacco Use Types Packs/Day Years Used Date Smoking Tobacco: Never Assessed Sex and Gender Information Value Date Recorded Sex Assigned at Not on file Gender Identity Not on file Sexual Orientation Not on file documented as of this encounter Plan of Treatment Not on file documented as of this encounter Procedures Procedure Name Priority Date/Time Associated Diagnosis Comments SURGICAL PATHOLOGY Routine 04/23/2012 0:00 EST documented in this encounter Results * SURGICAL PATHOLOGY (04/23/2012 0:00 EST) Pathology Report: SURGICAL PATHOLOGY REPORT Reports generated via electronic interface contain original data; however they are lacking the format of the original report. Caution should be taken when reading/interpreti ng unformatted reports. Name: ? RYAN GALINDO JR ? Accession #: ? [id number] ? : ? 1955 (Age: 56) ??M ? Collect Date: ? 04/23/2012 ? Location: ? [facility] ? Receive Date: ? 04/23/2012 ? Provider: KAMLESH ROB DO Copy to: LENNIE RAMIREZ MD ? Final Pathologic Diagnosis: ? Rectum, biopsy: - Hyperplastic polyp. ??See comment. Comment: ? Deeper sections of this specimen are examined. ??(Dr. Headley)/[facility] Document reviewed and electronically signed by: MARY JO NICHOLS MD Report ??Date: 04/27/2012 15:59 By the signature above, the attending physician certifies that he/she has personally conducted a gross and/or microscopic examination of the described specimens and rendered or confirmed the above diagnosis. Specimen(s) Received: ? Polyp proximal rectum Clinical History: ? Screening for colon cancer Gross Description: ? Received in formalin labelled Dexter George., Ryan A and polyp proximal rectum are two mcguire-pink irregular soft tissue fragments measuring 0.2 x 0.2 x 0.2 cm and 0.2 x 0.1 x 0.1 cm. ??The specimens are entirely submitted in one cassette. ??(Dr. Headley)/[facility] End of Report [facility] 04/23/2012 04/23/2012 16: 15 EST Kamlesh Rob DO PATHOLOGY ORDER GEORGES [facility] [address] [place] [address] documented in this encounter Visit Diagnoses Not on filedocumented in this encounter Care Teams Plater Hot Dip Relationship Specialty Start Date End Date Unknown, Provider, PCP - General 04/23/12 documented as of this encounter
--- OUTSIDE RECORDS SUMMARY | 2024-01-08 10:26 | XMS_ITS | Encounter Summary ---
[place] [address] Care Team Providers Care Mechanical Energy Engineer Name Role Phone AnnAmelia Vegas Primary Care Provider [phone] Reason for Referral * Consultation (Routine) - Closed Specialty Diagnoses / Procedures Referred By Alexa webster Referred To Contact Neurology Diagnoses Other polyneuropathy Akilah Valdez MD [address] [place] [address] [facility] Neurology [address] [place] [address] Referral ID Status Reason Start Date Expiration Date V isits Requested Visits Authorized [id number] Closed Consult, Test & Treat PCP Updated and/or Approved 06/17/2022 06/17/2023 12 12 Encounter Details Date Type Department Care Team (Latest Contact Info) Description 06/17/2022 Transcribe Orders eD Incoming Referrals [phone] Akilah Valdez MD [address] [place] [address] Other polyneuropathy Social History Tobacco Use Types Packs/Day Years Used Date Smoking Tobacco: Never Assessed Sex and Gender Information Value Date Recorded Sex Assigned at Not on file Gender Identity Not on file Sexual Orientation Not on file documented as of this encounter Plan of Treatment Scheduled Referrals Name Type Priority Associated Diagnoses Orde r Schedule Referral to Neurology Outpatient Referral Routine Other Polyneuropathy Ordered: 06/17/2022 documented as of this encounter Visit Diagnoses Diagnosis Other polyneuropathy documented in this encounter Care Teams Mechanical Energy Engineer Relationship Specialty Start Date End Date Amelia Murray [address] [place] [address] PCP - General Family Medicine 06/17/22 documented as of this encounter
--- OUTSIDE RECORDS SUMMARY | 2024-01-08 10:26 | XMS_ITS | Encounter Summary ---
Author Organization [facility] Address [address] [place] [address] Care Team Providers Care Meat Processing Center Manager Name Role Phone Unknown, Provider Primary Care Provider [phone] Encounter Details Date Type Department Care Team (Late st Contact Info) Description 11/26/2019 Lab Requisition [facility] Pathology & Laboratory Medicine - [address] [address] Outr Resulting Lab, Provider Social History Tobacco Use Types Packs/Day Years Used Date Smoking Tobacco: Never Assessed Sex and Gender Information Value Date Recorded Sex Assigned at Not on file Gender Identity Not on file Sexual Orientation Not on file documented as of this encounter Plan of Treatment Not on file documented as of this encounter Procedures Procedure Name Priority Date/Time Associated Diagnosis Comments PSA TOTAL, DIAGNOSTIC Routine 11/25/2019 9:30 EDT documented in this encounter Results * PSA TOTAL, DIAGNOSTIC (11/25/2019 9:30 EDT) PSA 2.1 0.0 - 4.5 ng/mL 11/28/2019 11:16 EDT [facility] Blood VENOUS BLOOD / Unknown 11/25/2019 9:30 EDT 11/27/2019 18:04 EDT Narrative [facility] - 11/28/2019 11:16 EDT NOTE: Serum PSA concentration should not be interpreted as absolute evidence for the presence or absence of malignant disease. Assayed on Siemens ADVIA Centaur XPT using chemiluminescent technology.??Values obtained by using different assay methods cannot be used interchangeably. Provider Outr Resulting Lab CHEMISTRY & BLOOD GAS ORDERABLES [facility] [address] [place] [address] documented in this encounter Visit Diagnoses Not on filedocumented in this encounter Care Teams Meat Processing Center Manager Relationship Specialty Start Date End Date Unknown, Provider, PCP - General 04/23/12 documented as of this encounter
--- OUTSIDE RECORDS SUMMARY | 2024-01-08 10:26 | XMS_ITS | Encounter Summary ---
Author Organization [facility] Address [address] [place] [address] Care Team Providers Care Block Sorter Name Role Phone Unknown, Provider Primary Care Provider [phone] Encounter Details Date Type Department Care Team (Late st Contact Info) Description 10/16/2021 Lab Requisition [facility] Pathology & Laboratory Medicine - [facility] [address] [place] [address] Outr Resulting Lab, Provider Social History Tobacco [...] Associated Diagnosis Comments PSA TOTAL, DIAGNOSTIC Routine 10/15/2021 15:20 EDT documented in this encounter Results * PSA TOTAL, DIAGNOSTIC (10/15/2021 15:20 EDT) PSA 3.0 <=4.5 ng/mL 10/16/2021 18:13 EDT [facility] Blood VENOUS BLOOD / Unknown 10/15/2021 15:20 EDT 10/16/2021 17:01 EDT Narrative [facility] - 10/16/2021 18:13 EDT NOTE: Serum PSA concentration should not be interpreted as absolute evidence for the presence or absence of malignant disease. Assayed on Siemens ADVIA PeopleDocaur XPT using chemiluminescent technology.??Values obtained by using different assay methods cannot be used interchangeably. Provider Outr Resulting Lab CHEMISTRY & BLOOD GAS ORDERABLES [facility] [address] [place] [address] documented in this encounter Visit Diagnoses Not on filedocumented in this encounter Care Teams Block Sorter Relationship Specialty Start Date End Date Unknown, Provider, PCP - General 04/23/12 documented as of this encounter
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
--- OUTSIDE RECORDS SUMMARY | 2024-01-08 10:26 | XMS_ITS | Referral Summary ---
Author Organization [facility] Address [address] [place] [address] Care Team Providers Care Maintenance Chief Name Role Phone Unknown, Provider Primary Care Provider Social History Tobacco Use Types Packs/Day Years Used Date Smoking Tobacco: Never Assessed Sex and Gender Information Value Date Recorded Sex Assigned at Not on file Gender Identity Not on file Sexual Orientation Not on file Plan of Treatment Not on file Care Teams Maintenance Chief Relationship Specialty Start Date End Date Unknown, Provider, PCP - General 04/23/12
--- OUTSIDE RECORDS SUMMARY | 2024-01-08 10:26 | XMS_ITS | Clinical Summary ---
Author Organization [facility] Address [address] [place] [address] Care Team Providers Care Filling Station Laborer Name Role Phone Unknown, Provider Primary Care Provider Social History Tobacco Use Types Packs/Day Years Used Date Smoking Tobacco: Never Assessed Sex and Gender Information Value Date Recorded Sex Assigned at Not on file Gender Identity Not on file Sexual Orientation Not on file Plan of Treatment Health Maintenance Due Date Last Done Comments Hepatitis C Screen 1955 RSV Immunization ( o r 60+ Years) (1 - 1-dose 60+ series) 2014 Fall Risk Screening 12/01/2019 COVID-19 Vaccine ( season) 2023 Care Teams Filling Station Laborer Relationship Specialty Start Date End Date Unknown, Provider, PCP - General 04/23/12
--- OUTSIDE RECORDS SUMMARY | 2024-01-08 10:26 | XMS_ITS | Encounter Summary ---
Author Organization [facility] [place] [address] Care Team Providers Care Cutting Torch Operator Name Role Phone Jose AlfredoAmelia Montes Primary Care Provider [phone] Reason for Referral * Physical Therapy (Routine) - Closed Specialty Diagnoses / Procedures Referred By Contac t Referred To Contact Physical Therapy Diagnoses Neck pain Numbness in feet Benign paroxysmal positional vertigo, unspecified laterality Joya Dennis MD [facility] [place] [address] Referral ID Status Reason Start Date Expiration Date V isits Requested Visits Authorized [id number] Closed Evaluate and Treat 06/29/2023 12/26/2023 12 12 * Physical Therapy (Routine) - Closed Specialty Diagnoses / Procedures Referred By Contac t Referred To Contact Physical Therapy Diagnoses Neck pain Numbness in feet Benign paroxysmal positional vertigo, unspecified laterality Joya Dennis MD [facility] [place] [address] Referral ID Status Reason Start Date Expiration Date V isits Requested Visits Authorized [id number] Closed Evaluate and Treat 06/29/2023 12/26/2023 12 12 Reason for Visit * Consultation (Routine) - Closed Specialty Diagnoses / Procedures Referred By Contac t Referred To Contact Neurology Diagnoses Other polyneuropathy Akilah Valdez MD [address] [place] [address] [facility] [address] [place] [address] Referral ID Status Reason Start Date Expiration Date V isits Requested Visits Authorized [id number] Closed Consult, Test & Treat PCP Updated and/or Approved 06/17/2022 06/17/2023 12 12 Encounter Details Date Type Department Care Team (Late st Contact Info) Description 06/29/2023 9:30 AM EST Office [place] [address] Joya Dennis MD [facility] [place] [address] Neuropathic pain; Neck pain; Numbness in feet; Benign paroxysmal positional vertigo, unspecified laterality Social History Tobacco Use Types Packs/Day Years Used Date Smoking Tobacco: Never Assessed Sex and Gender Information Value Date Recorded Sex Assigned at Not on file Gender Identity Not on file Sexual Orientation Not on file documented as of this encounter Last Filed Vital Signs Vital Sign Reading [...] Mass Index 27.41 06/29/2023 8:48 AM EST documented in this encounter Progress Notes * Joya Dennis MD - 06/29/2023 9:30 AM EST Images from the original note were not included. [facility] Department of Neurology, Neuromuscular Consultation Service I had the opportunity to evaluate Ryan Renteria Jr. in the Neurology clinic for the first time today,06/29/23 at the kind request of Dr. Valdez. REASON FOR CONSULTATION: peripheral neuropathy, bilateral lower extremities. HPI: Ryan Renteria Jr. is a 67 y.o. male with a >1 year history of pain in his feet. Over the past year this has [...] worked with PT for his neck. No symptoms in his hands or arms. He has had some difficulties with feeling weak and dizzy with skiing. He also endorses prolonged vertigo with A year ago, foot pain was intolerable - now it had evolved into a numb prickly sensation. His balance is pretty good. He is still skiing. He hs no difficulty walking to the BR in the dark. Intentional weight loss X 3 years. ROS - vertigo - chronic constipation Relevant lab: HgbA1c 5.5 Lyme negative CMP nl with exception elevated BUN Relevant diagnostic Tests and Imaging: I independently reviewed the CT of the head from 2011. Per my independent review, the findings are consistent with normal study. I reviewed notes from Amelia Murray. Past Medical History: As above. Hernia with repair Biceps rupture on the right; repaired. Past surgical history: No past surgical history on file. Medications: Your Medications Accurate as of June 29, 2023 11:01 AM. If you have any questions, ask your nurse or doctor. Continued medications, unchanged Dose Details meclizine 25 mg tablet Commonly known as: Antivert Take 25 mg by mouth as needed for Dizziness. 25 mg Refills: 0 Allergies: No Known Allergies Family history: No family history on file. Social history: Social History Socioeconomic History Marital status: Spouse name: Not on file Number of children: Not on file Years of education: Not on file Highest education level: Not on file Occupational History Not on file Tobacco Use Smoking status: Not on file Smokeless tobacco: Not on file Substance and Sexual Activity Alcohol use: Not on file Drug use: Not on file Sexual activity: Not on file Other Topics Concern Not on file Social History Narrative Not on file Social Determinants of Health Financial Resource Strain: Not on file Food Insecurity: Not on file Transportation Needs: Not on file Physical Activity: Not on file Intimate Partner Violence: Not on file Housing Stability: Not on file Physical Exam: BP 147/89 (BP Location (NBP): Left arm, Patient Position: Sitting, BP Cuff Sizes: Large Adult (32-43 cm)) Pulse (!) 101 Ht 177.8 cm (5' 10) Comment: pt reported Wt 86.6 kg (191 lb) Comment: ptreported BMI 27.41 kg/m?? Appearance: The patient is a healthy-appearing male who appears of stated age and comes to his visit accompanied by his . he appears well-developed and well-nourished albeit slender. Extremities: no foot or skeletal deformities. Skin color and temperature is normal. Mental status: The patient is alert and calm with MS intact to detailed questioning regarding his history. his speech and language is intact to normal conversation and examination commands; speech fluent. his attention and concentration allow for a full evaluation without evidence for deficit. Short- term and long-term memory are normal. Cranial nerves: No nystagmus, EOMI without reported diplopia. Facial movements are normal with fulleyelid closure, normal for head wrinkle, blink, smile and cheek puff. Perioral strength is preserved. There is no eyelid myotonia or Lance's twitch. Hearing is normal to finger rub but reduced on theleft c/t right. Jaw movements are normal. Tongue protrudes in the midline and shows no atrophy or fasciculations. Facial sensation intact. No evidence of dysphonia or hoarseness of voice. Motor: NE NF SA EE EF WE WF FA FF Noe Right 5 5 5 5 5 5 5 5 5 5 Left 5 5 5 5 5 5 5 5 5 5 HF HE KE KF HAB HADD ADF APF I E Right 5 nt 5 5 nt nt 5 5 5 5 Left 5 nt 5 5 nt nt 5 5 5 5 There is no atrophy or fasciculations. There is no myoclonus, tremor, change in tone, or drift. Sensory: Vibration: Ltoe 0 Rtoe 0 LMM 6 RMM 6 Lknee 8 Rknee 8 LDIP2 8 RDIP2 8 LDIP5 nt RDIP5 nt Pin: no dermatomal distribution of loss in UEs. LEs show LD pattern of alteration beginning mid-foot on the left and ankle on the right. Sensation is reduced but there is associated hyperesthesia distal to the midfoot on the left and ankle on the right, and plantar allodynia Proprioception: Preserved distally and proximally. Coordination: Intact with no evidence of dysmetria, dysarthria or tremor. No ataxia Gait and station: Able to rise from a seated position without the use of his arms. Normal stance; normal gait; able to walk on heels and toes and perform tandem gait; Romberg negative. Tendon reflexes: Arc Right Left Comments Biceps tendon C5-C6 2+ 2+ Brachioradialis tendon C5-C6 2 2 Triceps tendon C6-C7 2 2 Finger flexor (Hodan) C8-T1 abs abs Patellar ligament L3-L4 2+ 2+ spread Plantar (Babinski) L5-S1 abs abs Achilles tendon S1-S2 2 2 Assessment: Ryan Renteria Jr. is a 67 y.o. [...] and lumbar degenerative arthropathy and disc disease. The to, I am most concerned about his neck which seems to be giving him progressively more difficulties. He does have a history of remote trauma in which he likely experienced some cervical spine injury and I suspect this is continuing to give him at least myofascial symptoms. His neurologic exam is certainly somewhat reassuring and that it argues against overt myelopathic changes; however, in [...] of cannabis. We also talked about topical, alsv-vsz-oqcyfyi agents that he could use to help [...] ENT evaluation Follow up: after electrodiagnostic study JOYA DENNIS I spent 60 minutes in face-face time with the patient, with 15 minutes spent in same day documentation, ordering testing/drugs, coordination of care, chart and test review. documented in this encounter Plan of Treatment Scheduled Referrals Name Type Priority Associated Diagnoses Orde r Schedule Referral to Physical Therapy Outpatient Referral Routine Neck pain Numbness in feet Benign paroxysmal positional vertigo, unspecified laterality Ordered: 06/29/2023 Referral to Physical Therapy Outpatient Referral Routine Neck pain Numbness in feet Benign paroxysmal positional vertigo, unspecified laterality Ordered: 06/29/2023 documented as of this encounter Procedures Procedure Name Priority Date/Time Associated Diagnosis Comments EXTRACTABLE NUCLEAR ANTIGEN (YANIV) AB Routine 06/29/2023 11:14 AM EST Neuropathic pain METHYLMALONIC ACID, SERUM Routine 06/29/2023 11:14 AM EST Neuropathic pain RHEUMATOID FACTOR, QUANT Routine 06/29/2023 11:14 AM EST Neuropathic pain HC DNA AB DS ([place]) Routine 06/29/2023 11:14 AM EST Neuropathic pain VITAMIN B6 Routine 06/29/2023 11:14 AM EST Neuropathic pain HC SERUM PROT. ELECTROPHORESIS Routine 06/29/2023 11:14 AM EST Neuropathic pain VITAMIN B12 Routine 06/29/2023 11:14 AM EST Neuropathic pain documented in this encounter Results * Rheumatoid factor, quant (06/29/2023 11:14 AM EST) Rheumatoid Factor <10 <=14 IU/mL [facility] Blood 06/29/2023 11:1 4 AM EST 06/29/2023 11:24 AM EST Narrative Resulting Agency Comment Spec In Lab Joya Dennis MD CHEMISTRY ORDERABLE S [facility] [place] [id number] * RANI Antibody Screen (06/29/2023 11:14 AM EST) RANI Ab Screen Negative Negative [facility] Comment: This antinuclear antibody (RANI) screen is a qualitative test performed using a fluoroenzyme immunoassay on the Phadia 250 analyzer. This screen is designed to detect antibodies to U1RNP, SS-A/Ro, SS-B/La, centromere B, Scl-70, Liliya-1, and Sm(Bar[place]ona) proteins in serum samples. Antibodies to other nuclear antibodies will not be detected with this assay. This RANI screen is also performed in concert with a quantitative for IgG antibodies to dsDNA. Please note that as of 03/11/2022 that this testing is performed by the [facility] at [facility]. This change in testing location is associated with a change is testing method and reference intervals. Please review the results of this test in association with the posted reference intervals. dsDNA Ab 1.6 <=15.0 IU/mL [facility] Comment: <10 negative 10-15 equivocal >15 positive This dsDNA antibody result was generated using a fluoroenzyme immunoassay on the Phadia 250 analyzer. This quantitative test is designed to detect IgG antibodies directed against double stranded DNA in human serum. The presence of antibodies that recognize dsDNA is a highly specific marker for systemic lupus erythematosus. Please note that as of 03/11/2022 that this testing is performed by the [facility] at [facility]. This change in testing location is associated with a change is testing method and reference intervals. Please review the results of this test in association with the posted reference intervals. Blood 06/29/2023 11:1 4 AM EST 06/29/2023 12:12 PM EST Narrative Resulting Agency Comment Spec In Lab Joya Dennis MD LAB SEND OUT ORDERA BLES [facility] [place] [address] * Extractable Nuclear Antigen (YANIV) Ab (06/29/2023 11:14 AM EST) SS-A/Ro Ab 0.40 <=10.00 unit/mL [facility] Comment: <7 negative 7-10 equivocal >10 positive The SS-A antibody result was generated using fluoroenzyme immunoassay on the Phadia 250 analyzer. the semi-quantitative test is designed to detect IgG antibodies in human serum that are reactive to the SS-A (Ro) protein. Please note that as of 03/11/2022 that this testing is performed by the [facility] at [facility]. This change in testing location is associated with a change in testing method and reference intervals. Please review the results of this test in association with the posted reference intervals. SS-B/La Ab <0.40 <=10.00 unit/mL [facility] Comment: <7 negative 7-10 equivocal >10 positive The SS-B antibody result was generated using fluoroenzyme immunoassay on the Phadia 250 analyzer. the semi-quantitative test is designed to detect IgG antibodies in human serum that are reactive to the SS-B (La) protein. Please note that as of 03/11/2022 that this testing is performed by the [facility] at [facility]. This change in testing location is associated with a change in testing method and reference intervals. Please review the results of this test in association with the posted reference intervals. Scl-70 Ab 0.60 <=10.00 unit/mL [facility] Comment: <7 negative 7-10 equivocal >10 positive The Scl-70 antibody result was generated using fluoroenzyme immunoassay on the Phadia 250 analyzer. the semi-quantitative test is designed to detect IgG antibodies in human serum that are reactive to the Scl-70 protein. Please note that as of 03/11/2022 that this testing is performed by the [facility] at [facility]. This change in testing location is associated with a change in testing method and reference intervals. Please review the results of this test in association with the posted reference intervals. Sm ([place]ona) Ab <0.70 <=10.00 unit/mL [facility] Comment: <7 negative 7-10 equivocal >10 positive The Sm antibody result was generated using fluoroenzyme immunoassay on the Phadia 250 analyzer. the semi-quantitative test is designed to detect IgG antibodies in human serum that are reactive to the Sm protein. Please note that as of 03/11/2022 that this testing is performed by the [facility] at [facility]. This change in testing location is associated with a change in testing method and reference intervals. Please review the results of this test in association with the posted reference intervals. U1RNP Ab 1.70 <=10.00 unit/mL [facility] Comment: <5 negative 5-10 equivocal >10 positive The U1RNP antibody result was generated using fluoroenzyme immunoassay on the Phadia 250 analyzer. the semi-quantitative test is designed to detect IgG antibodies in human serum that are reactive to the U1RNP protein. Please note that as of 03/11/2022 that this testing is performed by the [facility] at [facility]. This change in testing location is associated with a change in testing method and reference intervals. Please review the results of this test in association with the posted reference intervals. Centromere Ab <0.40 <=10.00 unit/mL [facility] Comment: <7 negative 7-10 equivocal >10 positive The CENP antibody result was generated using fluoroenzyme immunoassay on the Phadia 250 analyzer. the semi-quantitative test is designed to detect IgG antibodies in human serum that are reactive to the Centromere B protein. Please note that as of 03/11/2022 that this testing is performed by the [facility] at [facility]. This change in testing location is associated with a change in testing method and reference intervals. Please review the results of this test in association with the posted reference intervals. Liliya-1 Ab 0.30 <=10.00 unit/mL [facility] Comment: <7 negative 7-10 equivocal >10 positive The Liliya-1 antibody result was generated using fluoroenzyme immunoassay on the Quick TV 250 analyzer. the semi-quantitative test is designed to detect IgG antibodies in human serum that are reactive to the Liliya-1 protein. Please note that as of 03/11/2022 that this testing is performed by the [facility] at [facility]. This change in testing location is associated with a change in testing method and reference intervals. Please review the results of this test in association with the posted reference intervals. Blood 06/29/2023 11:1 4 AM EST 06/29/2023 12:12 PM EST Narrative Resulting Agency Comment Spec In Lab Joya Dennis MD LAB SEND OUT ORDERA BLES Performing Organization Address City/State/[facility] Co de Phone Number [facility] [place] [address] * Vitamin B6 (06/29/2023 11:14 AM EST) [facility] Vitamin B6 (SEPTEMBER) 15 5 - 50 mcg/L [facility] Comment: ADDITIONAL INFORMATION This test was developed and its performance characteristics determined by [facility] in a manner consistent with CLIA requirements. This test has not been cleared or approved by the U.S. Food and Drug Administration. Test Performed by: [facility] - [address] [address] Thread Inspector: Ryan Shanks M.D. Ph.D.; CLIA# [id number] Blood 06/29/2023 11:1 4 AM EST 06/29/2023 12:28 PM EST Narrative Resulting Agency Comment Spec In Lab Joya Dennis MD LAB SEND OUT ORDERA BLES Performing Organization Address [facility] Co de Phone Number [facility] [place] [address] * Methylmalonic acid, serum (06/29/2023 11:14 AM EST) Pathologist [facility] Methylmalonic Acid (SEPTEMBER) 0.17 <=0.40 nmol/mL [facility] Comment: ADDITIONAL INFORMATION This test was developed and its performance characteristics determined by [facility] in a manner consistent with CLIA requirements. This test has not been cleared or approved by the U.S. Food and Drug Administration. Test Performed by: [address] [address] Thread Inspector: Ryan Shanks M.D. Ph.D.; CLIA# [id number] Blood 06/29/2023 11:1 4 AM EST 06/29/2023 2:49 PM EST Narrative Resulting Agency Comment Spec In Lab Joya Dennis MD LAB SEND OUT ORDERA BLES Performing Organization Address [facility] Co de Phone Number [facility] [place] [address] * Vitamin B12 (06/29/2023 11:14 AM EST) [facility] Vitamin B12 790 232 - 1,245 pg/mL [facility] Blood 06/29/2023 11:1 4 AM EST 06/29/2023 11:24 AM EST Narrative Resulting Agency Comment Spec In Lab Joya Dennis MD CHEMISTRY ORDERABLE S Performing Organization Address [facility] Co de Phone Number [facility] [place] [address] * Protein Electrophoresis, serum (06/29/2023 11:14 AM EST) [facility] Total Prot Electrophoresis 6.9 6.1 - 8.0 g/dL [facility] Albumin Electrophoresis 4.76 3.20 - 5.20 g/dL [facility] Alpha 1 Globulin 0.16 0.10 - 0.30 g/dL [facility] Alpha 2 Globulin 0.62 0.40 - 0.90 g/dL [facility] Beta Globulin 0.58 0.50 - 1.00 g/dL [facility] Gamma Globulin 0.78 0.50 - 1.30 g/dL [facility] M1 Band None Detected None Detected [facility] Blood 06/29/2023 11:1 4 AM EST 06/29/2023 11:24 AM EST Narrative Resulting Agency Comment Spec In Lab Joya Dennis MD CHEMISTRY ORDERABLE S [facility] [place] [address] documented in this encounter Visit Diagnoses Diagnosis Neuropathic pain Neuralgia, neuritis, and radiculitis, unspecified Neck pain Cervicalgia Numbness in feet Disturbance of skin sensation Benign paroxysmal positional vertigo, unspecified laterality documented in this encounter Care Teams Cutting Torch Operator Relationship Specialty Start Date End Date Amelia Murray [address] [place] [address] PCP - General Family Medicine 06/17/22 documented as of this encounter
--- OUTSIDE RECORDS SUMMARY | 2024-01-08 10:26 | XMS_ITS | Encounter Summary ---
Author Organization [facility] [place] [address] Care Team Providers Care Deputy Sheriff Court Services Name Role Phone Amelia Murray Primary Care Provider [phone] Encounter Details Date Type Department Care Team (Latest Contact Info) Description 06/29/2023 Travel Social History Tobacco Use Types Packs/Day Years Used Date Smoking Tobacco: Never Assessed Sex and Gender Information Value Date Recorded Sex Assigned at Not on file Gender Identity Not on file Sexual Orientation Not on file documented as of this encounter Plan of Treatment Not on file documented as of this encounter Visit Diagnoses Not on filedocumented in this encounter Care Teams Deputy Sheriff Court Services Relationship Specialty Start Date End Date Amelia Murray [address] [place] [address] PCP - General Family Medicine 06/17/22 documented as of this encounter
--- OUTSIDE RECORDS SUMMARY | 2024-01-08 10:26 | XMS_ITS | Encounter Summary ---
Author Organization [facility] Address [address] [place] [address] Care Team Providers Care Bisque Finisher Name Role Phone Unknown, Provider Primary Care Provider [phone] Encounter Details Date Type Department Care Team (Late st Contact Info) Description 06/02/2022 Lab Requisition [facility] Pathology & Laboratory Medicine - [address] [address] Outr Resulting Lab, Provider Social History Tobacco [...] Procedure Name Priority Date/Time Associated Diagnosis Comments HEMOGLOBIN A1C Routine 06/02/2022 11:50 EST documented in this encounter Results * HEMOGLOBIN A1C (06/02/2022 11:50 EST) Hemoglobin A1c 5.5 <5.7 % 06/03/2022 18:56 EST [facility] Comment: Glycemic Status References: Normal: ??<5.7% Pre-Diabetes: ??5.7% - 6.4% Diagnostic of Diabetes: ??> or = 6.5% (if confirmed) Est Avg Glucose 111 mg/dL 18:56 EST [facility] Comment:The eAG represents t he A1c result expressed as average glucose in mg/dL. Blood VENOUS BLOOD / Unknown 06/02/2022 11:50 EST 06/03/2022 17:11 EST Provider Outr Resulting Lab CHEMISTRY & BLOOD GAS ORDERABLES [facility] [address] [place] [address] documented in this encounter Visit Diagnoses Not on filedocumented in this encounter Care Teams Bisque Finisher Relationship Specialty Start Date End Date Unknown, Provider, PCP - General 04/23/12 documented as of this encounter
--- OUTSIDE RECORDS SUMMARY | 2024-01-08 10:26 | XMS_ITS | Encounter Summary ---
Author Organization [facility] Address [address] [place] [address] Care Team Providers Care Jewelry Dipper Name Role Phone Unknown, Provider Primary Care Provider [phone] Encounter Details Date Type Department Care Team (Late st Contact Info) Description 06/02/2022 Lab Requisition [facility] [address] [place] [address] Outr Resulting Lab, Provider Social History Tobacco [...] Procedure Name Priority Date/Time Associated Diagnosis Comments LYME AB Routine 06/02/2022 11:15 EST documented in this encounter Results * LYME AB (06/02/2022 11:15 EST) Lyme Ab Negative Negative 06/04/2022 11:14 EST [facility] Blood VENOUS BLOOD / Unknown 06/02/2022 11:15 EST 06/03/2022 17:10 EST Provider Outr Resulting Lab IMMUNOLOGY A ND SEROLOGY ORDERABLES [facility] [address] [place] [address] documented in this encounter Visit Diagnoses Not on filedocumented in this encounter Care Teams Jewelry Dipper Relationship Specialty Start Date End Date Unknown, ProviderMD PCP - General 04/23/12 documented as of this encounter
[2024-01-08 16:11] LABS: ALT 43 U/L (16-63); AST 25 U/L (15-37); Albumin 3.8 g/dL (3.4-5.0); Alkaline Phosphatase 92 U/L (46-116); Anion Gap 9.9 mmol/L (3-11); BUN 22 mg/dL (7-18); Bilirubin, Total 1.08 mg/dL (0.2-1.0); CO2 25.1 mmol/L (21.0-32.0); CREATININE 0.9 mg/dL (0.70-1.30); Calcium 9.2 mg/dL (8.5-10.1); Calculated LDL 104 mg/dL (<100); Chloride 104 mmol/L (98-107); Cholesterol 181 mg/dL (<200); Estimated GFR 92.45 (mL/min/1.73m2); Glucose 122 mg/dL (74-106); HDL Cholesterol 68 mg/dL (40-60); Sodium 139 mmol/L (136-145); Total Protein 7.4 g/dL (6.4-8.2); Triglyceride 47 mg/dL (<150)
== END 2024-01-08 10:24 | disposition home or self-care (01) ==
LOC: NCHCN 10:23
PROVIDERS: PCP Nurse Practitioner Family; Visit Provider Nurse Practitioner Family
DX: Z00.00 Encounter for general adult medical examination without abnormal findings (principal)
CPT/HCPCS: 80053; 80061